=== PATIENT | male | born 1955 | race Caucasian/White ===

== ENCOUNTER 2020-12-07 08:21 | Emergency (ER) | payer MEDICARE ==
[~2020-12-07] VITALS: Ht 188 cm; Wt 120.2 kg
== END 2020-12-07 11:43 | disposition home or self-care (01) ==
LOC: ER1 08:21
DX: Z23 Encounter for immunization (principal); U07.1 COVID-19; E11.9 Type 2 diabetes mellitus without complications; I10 Essential (primary) hypertension
CPT/HCPCS: 71045; 99284; M0243